=== PATIENT | male | born 1935 | race Caucasian/White ===

== ENCOUNTER 2018-07-25 23:49 | Observation (INO) | payer OTHER ==
[~2018-07-25] VITALS: Ht 172.7 cm; Wt 76.1 kg
[2018-07-26 00:33] LABS: BASOPHIL (%) 0.4 % (0-1); BASOPHIL COUNT 0.1 K/uL (0-0.1); EOSINOPHIL (%) 2.1 % (0-5); EOSINOPHIL COUNT 0.2 K/uL (0-0.3); HEMATOCRIT 29.3 % (38.0-50.0); HEMOGLOBIN 9.9 G/DL (12.5-16.6); LYMPHOCYTE (%) 6.9 % (15-42); LYMPHOCYTE COUNT 0.8 K/uL (1.0-2.8); MCHC 33.8 G/DL (30.0-36.0); MCV 91.8 FL (86-99); MONOCYTE COUNT 1.2 K/uL (0-0.8); NEUTROPHIL (%) 79.6 % (45-76); NEUTROPHIL COUNT 9.2 K/uL (1.8-6.4); RBC DIS.WIDTH-SD 43.8 % (39-53); RED BLOOD COUNT 3.19 M/uL (4.00-5.50); WHITE BLOOD COUNT 11.6 K/uL (4.1-10.2)
[2018-07-26 00:42] LABS: CHLORIDE 102 mEq/L (99-109); POTASSIUM 3.3 mEq/L (3.7-5.4); SODIUM 137 mEq/L (136-147)
[2018-07-26 00:44] LABS: GLUCOSE 182 mg/dL (70-99); PLATELET COUNT 356 K/uL (156-360)
[2018-07-26 00:48] LABS: CREATININE 1.1 mg/dL (0.6-1.3); GFR ESTIMATE (CALCULATED) > 59 mL/min/ (58.99-99999); INTER. NORMALIZED RATIO 1.1
[2018-07-26 00:49] LABS: UREA NITROGEN (BUN) 29 mg/dL (9-23)
[2018-07-26 00:51] LABS: PTT 27.3 SEC (25-37)
[2018-07-26 00:56] LABS: TROP-I INTERPRETATION NEGATIVE; TROPONIN-I < 0.01 ng/mL (0.0-0.30)
[2018-07-26 02:06] LABS: APPEARANCE CLEAR ((CLEAR)); BILIRUBIN NEGATIVE; BLOOD NEGATIVE; COLOR YELLOW ((YELLOW)); GLUCOSE (STRIP) NEGATIVE; KETONES NEGATIVE; LEUKOCYTES NEGATIVE; NITRITE NEGATIVE; PROTEIN (STRIP) 30; SPECIFIC GRAVITY 1.021 (1.000-1.030); UCUL ADDED? NO
[2018-07-26 05:37] VITALS: BP 150/67
[2018-07-26 06:05] LABS: HDL CHOLESTEROL 24 MG/DL (Desirable>=40); LDL CHOLESTEROL 96 mg/dL (Desirable<100); NON-HDL CHOLESTEROL 114 mg/dL (Desirable<160); TOTAL CHOLESTEROL 138 mg/dL (Desirable<200); TRIGLYCERIDES 88 MG/DL (Normal: <150)
[2018-07-26 08:08] LABS: THYROTROPIN (TSH) 2.8 MIU/L (0.4-5.5)
[2018-07-26 10:41] LABS: HEMOGLOBIN A1c (GLYCOHEMOGLOB) 6.4 % (Below 5.7)
[2018-07-26 14:46] VITALS: BP 118/53
[2018-07-26 16:06] VITALS: BP 127/53
[2018-07-26 18:01] VITALS: BP 131/57
[2018-07-26 19:03] LABS: BASOPHIL (%) 0.4 % (0-1); EOSINOPHIL (%) 1.3 % (0-5); EOSINOPHIL COUNT 0.1 K/uL (0-0.3); HEMOGLOBIN 10.8 G/DL (12.5-16.6); IMMATURE GRANULOCYTE (%) 0.8 % (0.0-0.7); LYMPHOCYTE (%) 8.3 % (15-42); LYMPHOCYTE COUNT 0.9 K/uL (1.0-2.8); MCH 31.2 PG (29.0-34.0); MCHC 33.8 G/DL (30.0-36.0); MCV 92.5 FL (86-99); MONOCYTE (%) 8.9 % (3-12); NEUTROPHIL (%) 80.3 % (45-76); NEUTROPHIL COUNT 8.8 K/uL (1.8-6.4); PLATELET COUNT 425 K/uL (156-360); RBC DIS.WIDTH-CV 13.3 % (11.8-14.6); RBC DIS.WIDTH-SD 45.2 % (39-53); RED BLOOD COUNT 3.46 M/uL (4.00-5.50); WHITE BLOOD COUNT 10.9 K/uL (4.1-10.2)
[2018-07-26 19:18] LABS: ALBUMIN 3.2 G/DL (3.2-4.8); CHLORIDE 101 MEQ/L (99-109); POTASSIUM 3.8 MEQ/L (3.7-5.4); SODIUM 135 MEQ/L (136-147); TOTAL BILIRUBIN 0.6 MG/DL (0.0-1.0)
[2018-07-26 19:23] LABS: ALKALINE PHOSPHATASE 64 IU/L (3-129); ALT (GPT) 19 IU/L (3-49); AST (GOT) 24 IU/L (2-34); GFR ESTIMATE (CALCULATED) > 59 mL/min/ (58.99-99999); GLUCOSE 144 mg/dL (70-99); UREA NITROGEN (BUN) 20 mg/dL (9-23)
[2018-07-26 20:09] VITALS: BP 109/55
[2018-07-27 08:23] VITALS: BP 128/60
[2018-07-27 08:30] LABS: BASOPHIL (%) 0.7 % (0-1); BASOPHIL COUNT 0.1 K/uL (0-0.1); EOSINOPHIL (%) 2.2 % (0-5); EOSINOPHIL COUNT 0.2 K/uL (0-0.3); HEMATOCRIT 28.1 % (38.0-50.0); HEMOGLOBIN 9.3 G/DL (12.5-16.6); IMMATURE GRANULOCYTE (%) 0.9 % (0.0-0.7); LYMPHOCYTE (%) 10.1 % (15-42); MCH 30.3 PG (29.0-34.0); MCHC 33.1 G/DL (30.0-36.0); MCV 91.5 FL (86-99); MONOCYTE (%) 11.2 % (3-12); MONOCYTE COUNT 1.1 K/uL (0-0.8); NEUTROPHIL (%) 74.9 % (45-76); NEUTROPHIL COUNT 7.1 K/uL (1.8-6.4); PLATELET COUNT 353 K/uL (156-360); RBC DIS.WIDTH-CV 13.2 % (11.8-14.6); RBC DIS.WIDTH-SD 44.4 % (39-53); RED BLOOD COUNT 3.07 M/uL (4.00-5.50); WHITE BLOOD COUNT 9.5 K/uL (4.1-10.2)
[2018-07-27 08:43] LABS: CHLORIDE 105 MEQ/L (99-109); CREATININE 0.9 MG/DL (0.6-1.3); GFR ESTIMATE (CALCULATED) > 59 mL/min/ (58.99-99999); GLUCOSE 117 mg/dL (70-99); POTASSIUM 3.9 MEQ/L (3.7-5.4); SODIUM 140 MEQ/L (136-147); UREA NITROGEN (BUN) 19 mg/dL (9-23)
[2018-07-27 11:36] VITALS: BP 134/59
[2018-07-27] MEDS ORDERED: LOSARTAN POTASS50 MG PO (13:06)
[2018-07-27] MEDS ORDERED: ASPIRIN EC325 MG PO (13:06)
[2018-07-27] MEDS ORDERED: LEVOTHYROXINE88 MCG PO (13:06)
[2018-07-27] MEDS ORDERED: QUETIAPINE FUM200 MG PO (13:06)
[2018-07-27] MEDS ORDERED: TYLENOL REGULA325 MG PO (13:06)
[2018-07-27] MEDS ORDERED: HYZAAR 50-121 TABLET PO ×2 (13:32→14:12)
[2018-07-27] MEDS ORDERED: HALDOL5 MG PO (13:34)
[2018-07-27 15:53] VITALS: BP 129/59
== END 2018-07-27 17:45 | disposition home or self-care (01) ==
LOC: EME 23:49 → EDOF 07-26 04:32 → 4SOUTH 07-26 04:32
PROVIDERS: Emergency Medicine; Hospitalist; Physician Assistant
DX: R53.1 Weakness (principal); F03.90 Unspecified dementia, unspecified severity, without behavioral disturbance, psychotic disturbance, mood disturbance, and anxiety; R50.9 Fever, unspecified; J98.11 Atelectasis; R26.89 Other abnormalities of gait and mobility; R47.81 Slurred speech; I10 Essential (primary) hypertension; E03.9 Hypothyroidism, unspecified; R07.81 Pleurodynia; Z87.891 Personal history of nicotine dependence; Z79.82 Long term (current) use of aspirin
CPT/HCPCS: 70450; 70551; 71045; 71046; 80048; 80053; 80061; 81003; 83036; 84443; 84484; 85025; 85025 91; 85610; 85730; 87040; 93005; 93880; 99281; 99285; G0378; G8978 GP CK; G8979 CJ; G8980 GP CK; G8987 CK; G8988 GO CJ; G8989 GO CK; J1644; J7030